=== PATIENT | female | born 1990 | race Asian ===

== ENCOUNTER 2017-02-23 12:44 | Observation (INO) | payer BC ==
[~2017-02-23] VITALS: Ht 157.5 cm; Wt 64.5 kg
[2017-02-23 15:06] LABS: PLATELET COUNT 176 K/uL (152-353)
[2017-02-23 15:14] LABS: POTASSIUM 3.8 mmol/L (3.6-5.2); SODIUM 138 mmol/L (136-145)
[2017-02-23 17:23] VITALS: BP 101/60; TEMP 97.7; Ht 157.5 cm; Wt 64.5 kg
[2017-02-23 20:00] VITALS: BP 130/64; TEMP 99.3
[2017-02-24] VITALS: BP 112/62; TEMP 99.1
--- NOTE | 2017-02-24 02:32 | NUR ---
01/23/2017 @ 2100 PT. UP TO THE RESTROOM TO HAVE BOWEL MOVEMENT. PT. HAD A LARGE FORMED BOWEL MOVEMENT AND STATES SHE FEELS MUCH BETTER NOW. PT. DENIES ANY COMPLAINTS AT THIS TIME AND NO ACUTE DISTRESS NOTED. CALL LIGHT WITHIN REACH. WILL CONTINUE TO MONITOR.
[2017-02-24 04:00] VITALS: BP 96/53; TEMP 98.2
[2017-02-24 04:27] LABS: PLATELET COUNT 160 K/uL (152-353)
[2017-02-24 04:48] LABS: POTASSIUM 3.9 mmol/L (3.6-5.2); SODIUM 138 mmol/L (136-145)
--- NOTE | 2017-02-24 07:52 | NUR ---
SPOKE WITH DR KAUR REGARDING IF PATIENT CAN HAVE BREAKFAST. MD STATES LONG PATIENT HAS HAD FORMED BOWEL MOVEMENTS. PATIENT CAN HAVE REGULAR DIET.
[2017-02-24 08:00] VITALS: BP 102/63; TEMP 98.1
[2017-02-24 12:00] VITALS: BP 113/52; TEMP 98.3
--- NOTE | 2017-02-24 13:24 | NUR ---
SPOKE WITH DR KAUR REGARDING UTILIZATION REVIEW STATING PATIENT NEEDS TO BE DISCHARGED TODAY. STATED HAVE UR DEPT CALL HER.
--- NOTE | 2017-02-24 14:00 | NUR ---
UR DEPT STATED THAT DR KAUR STATED SHE WOULD GET D/C DONE BUT THAT SHE IS TIED UP IN OFFICE AT THIS TIME.
[2017-02-24 16:00] VITALS: BP 107/59; TEMP 97.9
--- NOTE | 2017-02-24 18:07 | NUR ---
D/C INSTRUCTIONS GIVEN TO PT. IV D/C'D L FA 22G. CATH TIP INTACT.
== END 2017-02-24 18:20 | disposition home or self-care (01) ==
LOC: MED/SURG 12:44
PROVIDERS: ADMIT Family Medicine
DX: N39.0 Urinary tract infection, site not specified (principal); R11.10 Vomiting, unspecified; K56.41 Fecal impaction; K59.01 Slow transit constipation; F17.200 Nicotine dependence, unspecified, uncomplicated; R10.12 Left upper quadrant pain
CPT/HCPCS: 36415; 80053; 81000; 82150; 83690; 83735; 85027; 87040; 87086; 87088; 96365; 96366; 96367; 99220; G0378; G0379